=== PATIENT | female | born 1995 | race Caucasian/White ===

== ENCOUNTER 2024-06-30 20:07 | Emergency (ER) | payer MEDICAID ==
[~2024-06-30] VITALS: Ht 165.1 cm; Wt 50.0 kg
[~2024-06-30 20:07] MED LIST: NO HOME MEDS
[2024-06-30 20:12] VITALS: BP 106/79; PULSE 88; TEMP 97.3; O2SAT 98
[2024-06-30] MEDS ORDERED: AMOX875T2 PO (20:39)
[2024-06-30] MEDS: amoxicillin 250mg capsule PO ONE (20:43)
[2024-06-30 20:44] VITALS: RESP 18
[2024-06-30] MEDS: ketorolac trometh 15mg/ml vial 15 MG/ML ML IM ONE (20:44)
== END 2024-06-30 20:48 | disposition home or self-care (01) ==
LOC: ER 20:07
DX: K08.89 Other specified disorders of teeth and supporting structures (principal); Z79.2 Long term (current) use of antibiotics
CPT/HCPCS: 96372; 99283; J1885

== ENCOUNTER 2024-07-11 08:29 | Emergency (ER) | payer MEDICAID ==
[~2024-07-11] VITALS: Ht 165.1 cm; Wt 50.1 kg
[~2024-07-11 08:29] MED LIST changes: +AMOX875T2 PO
[2024-07-11 08:39] VITALS: BP 119/71; PULSE 80; RESP 16; TEMP 98.6; O2SAT 97
== END 2024-07-11 13:31 | disposition left against medical advice (07) ==
LOC: ER 08:29
DX: R05.9 Cough, unspecified (principal); J00 Acute nasopharyngitis [common cold]; R09.81 Nasal congestion
CPT/HCPCS: 99281

== ENCOUNTER 2024-08-04 20:02 | Emergency (ER) | payer MEDICAID ==
[~2024-08-04] VITALS: Ht 165.1 cm; Wt 50.0 kg
[~2024-08-04 20:02] MED LIST changes: -AMOX875T2 PO
[2024-08-04 20:05] VITALS: TEMP 99.9
[2024-08-04] MEDS: normal saline 1000ML IV soln IVB ONE (21:35)
[2024-08-04 21:44] LABS: BASOPHILS % (AUTO) 0.2 % (0-1); EOSINOPHILS % (AUTO) 0.4 % (0-6); HEMATOCRIT 43.5 % (35.0-45.0); HEMOGLOBIN 14.3 g/dl (12.0-16.0); LYMPHOCYTES # (AUTO) 0.4 X10'3 (1.1-4.8); LYMPHOCYTES % (AUTO) 4.5 % (21-51); MEAN CORPUSCULAR VOLUME 85.1 FL (78-98); MEAN PLATELET VOLUME 8.1 FL (7.4-10.4); MONOCYTES # (AUTO) 0.2 X10'3 (0-0.9); MONOCYTES % (AUTO) 2.1 % (2-12); NEUTROPHILS # (AUTO) 8.8 X10'3 (1.8-7.7); NEUTROPHILS % (AUTO) 92.8 % (42-75); PLATELET COUNT 187 X10'3 (140-440); RED BLOOD COUNT 5.11 X10'6 (4.20-5.60); RED CELL DISTRIBUTION WIDTH 13.8 % (11.5-14.5); WHITE BLOOD COUNT 9.5 X10'3 (4.5-11.0)
[2024-08-04 21:59] LABS: ALANINE AMINOTRANSFERASE 25 U/L (12-78); ALBUMIN 3.8 G/DL (3.4-5.0); ALBUMIN/GLOBULIN RATIO 1.1 (1.1-1.5); ALKALINE PHOSPHATASE 72 IU/L (46-116); ANION GAP 8 (8-16); ASPARTATE AMINO TRANSFERASE 15 U/L (10-37); BILIRUBIN,TOTAL 0.8 MG/DL (0.1-1.0); BLOOD UREA NITROGEN 15 MG/DL (7-18); BUN/CREATININE RATIO 17.9 (10.0-20.0); C-REACTIVE PROTEIN 1.27 MG/DL (0.0-0.5); CALCIUM 8.1 MG/DL (8.5-10.1); CHLORIDE 104 MMOL/L (99-107); CREATININE 0.84 MG/DL (0.40-0.90); GLUCOSE 101 MG/DL (70-104); HCG SERUM QL NEGATIVE; LIPASE 18 U/L (16-77); MAGNESIUM 1.6 MG/DL (1.5-2.4); POTASSIUM 3.7 MMOL/L (3.5-5.1); SODIUM 140 MMOL/L (135-145); TOTAL CARBON DIOXIDE 28.1 MMOL/L (24-32); TOTAL PROTEIN 7.3 G/DL (6.4-8.2); eCRCL 79 ML/MIN; eGFR 81 ML/MIN
[2024-08-04] MEDS: ondansetron/PF 4mg/2ml inj IV ONE (22:55)
[2024-08-04] MEDS: normal saline 1000ml 1,000 ML IV ONE (23:45)
[2024-08-04] MEDS ORDERED: ONDA-243 PO (23:53)
[2024-08-05 01:06] LABS: BILIRUBIN,URINE NEGATIVE (Neg); CLARITY,URINE CLEAR (Clear); COLOR,URINE YELLOW (Yellow); GLUCOSE, URINE NEGATIVE (Neg); KETONES,URINE 15 mg/dl (Neg); LEUKOCYTE ESTERASE ,URINE NEGATIVE (Neg); NITRITES, URINE NEGATIVE (Neg); OCCULT BLOOD,URINE NEGATIVE (Neg); PROTEIN,URINE NEGATIVE (Neg); UROBILINOGEN,URINE 0.2 E.U/dL (0.2-1.0)
[2024-08-05 01:09] LABS: UA COLLECTION TYPE CLN CATCH MIDSTREAM
[2024-08-05] MEDS ORDERED: DICY20TA17 PO (01:32)
[2024-08-05 02:14] VITALS: BP 102/53; PULSE 94; RESP 16; O2SAT 98
[2024-08-05 02:35] LABS: URINE AMPHETAMINE SCREEN NEGATIVE (Neg); URINE BARBITUATE SCREEN NEGATIVE (Neg); URINE BENZODIAZEPINES SCREEN NEGATIVE (Neg); URINE CANNABINOID SCREEN NEGATIVE (Neg); URINE COCAINE SCREEN NEGATIVE (Neg); URINE METHADONE SCREEN NEGATIVE (Neg); URINE OPIATE SCREEN NEGATIVE (Neg); URINE PHENCYCLIDINE SCREEN NEGATIVE (Neg)
== END 2024-08-05 02:16 | disposition home or self-care (01) ==
LOC: ER 20:02
DX: R11.2 Nausea with vomiting, unspecified (principal); R42 Dizziness and giddiness; R10.9 Unspecified abdominal pain; E86.0 Dehydration
CPT/HCPCS: 36415; 80053; 80305; 81003; 83690; 83735; 84703; 85025; 86140; 87502; 87503; 96361; 96374; 99283; J2405; J7030